=== PATIENT | female | born 1985 | race African-American/Black ===

== ENCOUNTER 2023-03-21 10:53 | Emergency (ER) | payer MEDICAID ==
[~2023-03-21] VITALS: Ht 172.7 cm; Wt 109.1 kg
[2023-03-21 11:18] VITALS: BP 141/83; PULSE 92; TEMP 97.8; O2SAT 98
[2023-03-21 11:37] VITALS: RESP 18
[2023-03-21] MEDS ORDERED: SULF1TAB49 PO (11:43)
== END 2023-03-21 13:52 | disposition home or self-care (01) ==
LOC: ER 10:55
DX: S81.832A Puncture wound without foreign body, left lower leg, initial encounter (principal); I89.0 Lymphedema, not elsewhere classified; X58.XXXA Exposure to other specified factors, initial encounter; Y93.89 Activity, other specified; Y92.89 Other specified places as the place of occurrence of the external cause; Y99.8 Other external cause status
CPT/HCPCS: 87070; 87077; 87186; 93971; 99283; 99284